=== PATIENT | male | born 2000 | race Caucasian/White ===

== ENCOUNTER → 2023-07-29 | Outpatient (CLI) | payer OTHER ==
--- NOTE | 2023-07-29 12:41 | CT ---
EXAMINATION TYPE: CT hand RT wo con DATE OF EXAM: 07/29/2023 COMPARISON: None available. HISTORY: fx of right 4th metacarpal CT DLP: 186.5 mGycm Automated exposure control for dose reduction was used. FINDINGS: There is a comminuted fracture at the base of the fourth metacarpal with multiple fracture fragments seen along the posterior margin. There also appears to be posterior subluxation of the fracture fragm ent. There also appears to be a mildly comminuted fracture involving the hamate bone. No additional f ractures are clearly seen. There also appears to be posterior subluxation/dislocation of the fifth metacarpal bone. The joint spaces otherwise appear preserved. IMPRESSION: 1. FRACTURE SUBLUXATION OF THE FOURTH METACARPAL BONE AT ITS BASE. 2. THERE ALSO APPEARS TO BE A POSTERIOR SUBLUXATION/DISLOCATION OF THE FIFTH METACARPAL BONE. 3. MILDLY COMMINUTED FRACTURE OF THE HAMATE BONE IS ALSO PRESENT.
== END | disposition home or self-care (01) ==
LOC: RADCTMAIN 11:49
PROVIDERS: ATTEND Orthopaedic Surgery Hand Surgery
DX: S62.314A Displaced fracture of base of fourth metacarpal bone, right hand, initial encounter for closed fracture (principal); S63.054A Dislocation of other carpometacarpal joint of right hand, initial encounter